=== PATIENT | male | born 1995 | race Caucasian/White ===

== ENCOUNTER 2017-01-08 22:22 | Emergency (ER) | payer OTHER ==
[2017-01-08 22:58] LABS: HCT 44.4 % (42.0-52.0); HGB 15.4 g/dl (13.2-18.0); MCH 30.3 pg (25.0-31.0); MCV 87.2 fL (78.0-100.0); RBC 5.09 M/uL (4.70-6.00)
[2017-01-08 22:59] LABS: MCHC 34.7 g/dL (32.0-36.0); PLT 229 K/uL (150-400); WBC 12.4 K/uL (4.0-10.5)
[2017-01-08 23:12] LABS: ALBUMIN 4.5 g/dL (3.5-5.0); BILIRUBIN - TOTAL 0.3 mg/dL (0.1-1.0); GLOBULIN (CALCULATION) 3.1 g/dL (2.2-4.2); POTASSIUM 3.9 mmol/L (3.5-5.1); TOTAL PROTEIN 7.6 g/dL (6.4-8.3)
== END 2017-01-08 23:40 | disposition home or self-care (01) ==
LOC: FER 22:22
PROVIDERS: Nurse Practitioner
DX: R10.84 Generalized abdominal pain (principal); R11.2 Nausea with vomiting, unspecified; F90.9 Attention-deficit hyperactivity disorder, unspecified type; F31.89 Other bipolar disorder; F17.210 Nicotine dependence, cigarettes, uncomplicated
CPT/HCPCS: 36415; 80053; 82150; 83690; 85025; 99284